=== PATIENT | female | born 1950 | race Two or more races ===

== ENCOUNTER 2023-05-13 21:41 | Emergency (ER) | payer MEDICARE, OTHER ==
[2023-05-13 22:02] LABS: BASOPHILS # (AUTO) 0.1 10^3/uL (0.0-0.1); BASOPHILS % (AUTO) 0.7 %; EOSINOPHILS # (AUTO) 0.3 10^3/uL (0.0-0.7); EOSINOPHILS % (AUTO) 2.5 %; HCT - HEMATOCRIT 41.8 % (37.0-47.0); HGB - HEMOGLOBIN 13.8 g/dL (12.0-16.0); LYMPHOCYTES # (AUTO) 4.3 10^3/uL (1.5-3.5); LYMPHOCYTES % (AUTO) 43.5 %; MEAN CORPUSCULAR HEMOGLOBIN 29.7 pg (27.0-31.0); MEAN CORPUSCULAR VOLUME 89.9 fL (81.0-99.0); MEAN PLATELET VOLUME 10.5 fL (7.9-10.8); MONOCYTES # (AUTO) 0.9 10^3/uL (0.0-1.0); MONOCYTES % (AUTO) 9.2 %; NEUTROPHILS # (AUTO) 4.4 10^3/uL (1.5-6.6); NEUTROPHILS % (AUTO) 43.8 %; PLT - PLATELET COUNT 320 10^3/uL (130-450); RED BLOOD COUNT 4.65 10^6/uL (4.20-5.40); RED CELL DISTRIBUTION WIDTH 12.4 % (12.0-15.0); WHITE BLOOD COUNT 9.9 x10^3/uL (4.8-10.8)
--- NOTE | 2023-05-13 22:05 | ED Physician Documentation ---
PD HPI CHEST PAIN - Stated complaint Stated Complaint: CHEST PX - Chief complaint Chief Complaint: Cardiac - History obtained from History obtained from: Patient, Family - Additional information Additional information: 72-year-old woman who visiting from [place]. She is accompanied by her and they arrived by private vehicle. She is no history of coronary disease and says she had a negative stress test about a year ago. That said she has multiple risk factors for coronary disease including hypertension and age and type 2 diabetes. She also has risk factor for PE given recent travel and she is on estrogen still. On and off for the last month she has had episodic nonexertional chest pain radiating to the back which lasts minutes to half an hour at a time. She notes no particular triggers. She developed a particular bad episode about an hour ago and this time she is nauseous with it which is new. PD PAST MEDICAL HISTORY - Allergies Allergies/Adverse Reactions: Allergies Allergy/AdvReac Type Severity Reaction Status Date / Time hydrocortisone AdvReac Emesis Verified 05/13/23 22:06 PD ED PE NORMAL - Vitals Vital signs reviewed: Yes - General General: Alert and oriented X 3, Other (appears uncomfortable and is retching.) - Cardiac Cardiac: RRR, No murmur - Respiratory Respiratory: No respiratory distress, Clear bilaterally - Abdomen Abdomen: Non tender - Extremities Extremities: No edema, No calf tenderness / cord - Neuro Neuro: Alert and oriented X 3, Normal speech Results - Vitals Vitals: Vital Signs - 24 hr 05/13/23 05/13/23 21:44 22:00 Temperature 37.1 C Heart Rate 64 63 Respiratory 16 18 Rate Blood Pressure 207/63 H 214/65 H O2 Saturation 100 99 Oxygen O2 Source Room air - EKG (time done) 2156 EKG releavant findings:: EKG personally interpreted by author of this note. Relevant findings are: Rate: Rate (enter#) (63) Rhythm: NSR [place]: Normal Intervals: Normal ME QRS: Normal Ischemia: Non specific changes. No: ST elevation c/w ischemia, ST depression Compare to prior EKG: Old EKG unavailable Computer interpretation: Agree with computer - Labs Labs: Laboratory Tests 05/13/23 05/13/23 21:56 21:56 WBC 9.9 RBC 4.65 Hgb 13.8 Hct 41.8 MCV 89.9 MCH 29.7 MCHC 33.0 RDW 12.4 Plt Count 320 MPV 10.5 Neut # (Auto) 4.4 Lymph # (Auto) 4.3 H Brooks # (Auto) 0.9 Eos # (Auto) 0.3 Baso # (Auto) 0.1 Absolute Nucleated RBC 0.00 Nucleated RBC % 0.0 Sodium 137 Potassium 4.0 Chloride 101 Carbon Dioxide 28 Anion Gap 8.0 BUN 16 Creatinine 0.6 Estimated GFR (MDRD) 99 Glucose 111 H Calcium 10.4 H Total Bilirubin 0.2 AST 21 ALT 17 Alkaline Phosphatase 94 Troponin I High Sens 3.0 Total Protein 7.8 Albumin 4.6 Globulin 3.2 Albumin/Globulin Ratio 1.4 Lipase 79 PD Medical Decision Making - ED course ED course: 72-year-old woman presents with acute chest pain, she looks uncomfortable and is retching. Her EKG is nonischemic and her initial troponin done at 10 PM was negative/normal. Given that she is also on estrogen she was sent for CT pulmonary angiogram which is pending at shift change but I do not see anything major on there. Signed out to Dr. Watkins at 11 PM shift change pending repeat troponin testing at midnight and formal read of her CT angiogram. She was feeling much better after a small dose of morphine and Zofran. She also received aspirin. She was hypertensive here and had not taken her antihypertensives but had them with her and was encouraged to do so. Departure - Departure Clinical Impression: Chest pain Qualifiers: Chest pain type: unspecified Qualified Code(s): R07.9 - Chest pain, unspecified Condition: Good Record reviewed to determine appropriate education?: Yes Instructions: ED Chest Pain Atypical Unkn Cause Forms: PCP List
[2023-05-13] MEDS ORDERED: iohexoL-300 100 ML VIAL ONE (22:06)
[2023-05-13] MEDS: ASPIRIN CHEW 81 MG TABLET PO STA (22:13)
[2023-05-13] MEDS: ONDANSETRON 4 MG/2 ML VIAL IVP STA (22:14)
[2023-05-13] MEDS: MORPHINE 2 MG/ML CARPUJECT IVP STA (22:16)
[2023-05-13 22:21] LABS: ALBUMIN 4.6 g/dL (3.2-5.5); ALBUMIN/GLOBULIN RATIO 1.4 (1.0-2.2); BILIRUBIN,TOTAL 0.2 mg/dL (0.2-1.0); CALCIUM 10.4 mg/dL (8.5-10.3); CREATININE 0.6 mg/dL (0.6-1.3); TOTAL PROTEIN 7.8 g/dL (6.4-8.9)
--- NOTE | 2023-05-13 22:27 | XRAY Report ---
PROCEDURE: Chest 1V INDICATIONS: Chest Pain TECHNIQUE: One view of the chest was acquired. COMPARISON: None. FINDINGS: Surgical changes and devices: None. Lungs and pleura: No pleural effusions or pneumothorax. Lungs are clear. Mediastinum: Mediastinal contours appear normal. Heart size is normal. Bones and chest wall: No suspicious bony lesions. Overlying soft tissues appear unremarkable. IMPRESSION: No acute cardiopulmonary process. Reviewed by: Robert Diaz MD on 05/13/2023 10:25 PM [facility] Approved by: Robert Diaz MD on 05/13/2023 10:25 PM [facility] Station ID: [id number]
[2023-05-13] MEDS: iohexoL-300 100 ML VIAL IVP ONE (22:32)
--- NOTE | 2023-05-13 22:52 | CT Report ---
PROCEDURE: Angio Chest INDICATIONS: Chest/back pain, on estrogen, PE protocol CONTRAST: 80mL Omni 300 TECHNIQUE: After the administration of intravenous contrast, 2 mm axial images were acquired from the pulmonary apices to the posterior costophrenic angles during the arterial phase. In addition, 1 mm lung kernel and 5 mm soft tissue kernel reconstructions were performed. 3-dimensional coronal oblique maximum int ensity projection (MIP) reformats, 8 mm axial MIP, and 5 mm coronal and sagittal MPR reformats were t hen performed through the thorax. For radiation dose reduction, the following was used: automated exp osure control, adjustment of mA and/or kV according to patient size. COMPARISON: Same day chest x-ray. FINDINGS: Image quality: Excellent. Large vessels: No filling defects within the opacified pulmonary arteries, accounting for motion and contrast timing. No evidence of acute aortic syndrome or aortic aneurysm. Lungs and pleura: No consolidation. No pleural effusions. No pneumothorax. There is a 5 mm right mid dle lobe nodule which appears to be along the minor fissure (image 52). Additional scattered micronod ules measuring 2 to 3 mm. Mediastinum: Heart size is normal. Mild coronary artery cavitations. No pericardial effusion. No larg e vessel abnormality. Mild atherosclerotic vascular calcifications. No mediastinal adenopathy by size criteria. Chest wall and lower neck: Thyroid is unremarkable. No axillary or supraclavicular adenopathy by size . Bones: No aggressive osseous abnormality. Upper Abdomen: Unremarkable. IMPRESSION: 1.No pulmonary embolus. 2.No acute pulmonary process. 3.Scattered nonspecific micronodules measuring 2 to 3 mm. There is a 5 mm nodule right middle lobe ad jacent to the minor fissure, favor represent an intrapulmonary lymph node. Per Fleischner criteria, i f patient is high risk, optional one-year chest CT can be obtained, if patient is low risk, no follow -up is necessary. Reviewed by: Robert Diaz MD on 05/13/2023 10:51 PM PST Approved by: Robert Diaz MD on 05/13/2023 10:51 PM PST Station ID: [id number]
--- NOTE | 2023-05-14 00:33 | ED Physician Documentation ---
ED Addendum - Addendum Addendum: 05/14/23 00:32 Patient endorsed to me by Dr. Ruvalcaba pending 2nd troponin. BP improved to 168/75 s/p home meds. will continue to monitor. 05/14/23 02:06 Repeat trop 95.1. Will plan to transfer for NSTEMI. calling [facility] now. 05/14/23 02:10 Repeat EKG at 02:05 with HR 65, NSR. normal intervals. nonischemic ekg without acute IGNACIO. 05/14/23 02:33 d/w Rani at [facility] who will look for placement for patient. 05/14/23 05:48 Brief episode of 8 beats of v tach on monitor at 05:40:45. [facility] aware. 05/14/23 06:59 Repeat ekg at 05:51 rate 64 NSR. normal intervals. similar to previous. Patient does have troponin elevation in 1000s on 3rd troponin at 5am, confirming NSTEMI. Plan to endorse to incoming daytime ED MD at 7am shift change.
[2023-05-14] MEDS: CLOPIDOGREL 300 MG TABLET PO STA (02:18)
[2023-05-14] MEDS: ATORVASTATIN 40 MG TABLET PO STA (02:19)
[2023-05-14] MEDS: ENOXAPARIN 80 MG/0.8 ML SYRINGE SUBQ STA (02:19)
[2023-05-14] MEDS: SODIUM CHLORIDE 0.9% 500 ML IV STA ×2 (03:00→09:02)
[2023-05-14] MEDS: SODIUM CHLORIDE 0.9% 1,000 ML IV STA (03:03)
[2023-05-14 04:05] LABS: B. PARAPERTUSSIS- RESP PCR PAN NOT DETECTED; B. PERTUSSIS- RESP PCR PANEL NOT DETECTED; C. PNEUMONIAE- RESP PCR PANEL NOT DETECTED; CORONAVIRUS 229E-RESP PCR NOT DETECTED; CORONAVIRUS HKU1-RESP PCR NOT DETECTED; CORONAVIRUS NL63-RESP PCR NOT DETECTED; CORONAVIRUS OC43-RESP PCR NOT DETECTED; HUMAN METAPNEUMOVIRUS NOT DETECTED; INFLUENZA A- RESP PCR PANEL NOT DETECTED; INFLUENZA B - RESP PCR PANEL NOT DETECTED; M. PNEUMONIAE- RESP PCR PANEL NOT DETECTED; PARAINFLUENZA VIRUS 1 NOT DETECTED; PARAINFLUENZA VIRUS 2 NOT DETECTED; PARAINFLUENZA VIRUS 3 NOT DETECTED; PARAINFLUENZA VIRUS 4 NOT DETECTED; RHINOVIRUS/ENTEROVIRUS NOT DETECTED; RSV- RESP PCR PANEL NOT DETECTED; SARS-CoV-2 -RESP PCR PANEL NOT DETECTED
[2023-05-14 06:23] LABS: MAGNESIUM 1.8 mg/dL (1.7-2.3)
[2023-05-14 06:54] LABS: TROPONIN I HIGH SENSITIVITY 1951.3 ng/L (2.3-14.8)
--- NOTE | 2023-05-14 08:31 | ED Physician Documentation ---
ED Addendum - Addendum Addendum: 05/14/23 08:28 The patient had received initial doses of medications for OR. We are awaiting word for hospital bed availability at outlying facilities. Likely will be at least through the day or longer. I wrote orders for daily medications to include acute ACS medications of aspirin , clopidogrel, Lovenox and atorvastatin. She typically uses on her med list also nifedipine and metformin and citalopram and Imdur. She is feeling well this morning. Blood pressure has been running approximately 110-120 systolic, HR 60s, overnight and this morning was actually 98 systolic. As such I will hold off on her nifedipine. I ordered her other home medicines. In lieu of the Imdur which would last all day, I will instead use a Nitropatch that can be removable. I talked with the patient she is feeling well this morning. She seemed in a good mood. She is not having any chest pain overnight or this morning. Repeat troponin was well elevated compared to the first 2. I will order some more and it 11 AM which will be at a 6-hour interval. Will check troponin, BNP, basic metabolic.
[2023-05-14 09:09] LABS: CALCIUM 9.3 mg/dL (8.5-10.3); CREATININE 0.5 mg/dL (0.6-1.3); POTASSIUM 4.2 mmol/L (3.5-4.5)
[2023-05-14 09:19] LABS: TROPONIN I HIGH SENSITIVITY 2534.8 ng/L (2.3-14.8)
[2023-05-14] MEDS: CITALOPRAM 10 MG TABLET PO SCH (10:16)
[2023-05-14] MEDS: ENOXAPARIN 80 MG/0.8 ML SYRINGE SUBQ SCH (10:16)
[2023-05-14] MEDS: ATORVASTATIN 40 MG TABLET PO SCH (10:17)
[2023-05-14] MEDS: NITROGLYCERIN 0.2 MG/HR PATCH TOP SCH (10:17)
[2023-05-14] MEDS: CLOPIDOGREL 75 MG TABLET PO SCH (10:17)
[2023-05-14] MEDS: ASPIRIN CHEW 81 MG TABLET PO SCH (10:17)
[2023-05-14] MEDS: metFORMIN 500 MG TABLET PO SCH (10:17)
[2023-05-14] MEDS: MAGNESIUM OXIDE 400 MG TABLET PO SCH (10:18)
--- NOTE | 2023-05-14 12:34 | PHARMACY PROGRESS NOTE ---
- Best Possible Medication History Admit Date and Time: Processed by: Nursing Medications reviewed in ED?: Yes As the person ultimately responsible for medication therapy, providers are able to order a medication from an existing home medication list in [facility] via the "Reconcile Routine" prior to Confirmation of that medication by ict support and test engineers. Such practice is discouraged except when the physician, in their clinical judgment, deems that a medical need exists for a medication without regard to previous use.
--- NOTE | 2023-05-14 16:58 | ED Physician Documentation ---
ED Addendum - Addendum Addendum: 05/14/23 16:56 The patient is still without any chest pain through the late morning and afternoon. We have not heard from any outlying facilities for accepting of the patient. She remains on heart monitor. No ectopy during the day today. She did have a brief run of V. tach for 8 beats last night as documented by the overnight provider. No further ones today. We did obtain an echocardiogram today which showed actually pretty good function of 60 to 65% ejection fraction, no regional wall abnormality, no effusion, and no major valvular dysfunctions. A repeat troponin was still showing elevation now to approximately 2900. She is not having chest pain so it does not sound like ongoing is ischemia per se I am. I am presuming still filtering out of a injured area. It would still be appropriate to have the patient undergo cardiology evaluation and we will continue awaiting facilities who can accept transfer.
[2023-05-15 06:14] LABS: BASOPHILS # (AUTO) 0.1 10^3/uL (0.0-0.1); EOSINOPHILS # (AUTO) 0.3 10^3/uL (0.0-0.7); EOSINOPHILS % (AUTO) 3.8 %; LYMPHOCYTES # (AUTO) 3.3 10^3/uL (1.5-3.5); LYMPHOCYTES % (AUTO) 48.7 %; MEAN CORPUSCULAR HEMOGLOBIN 29.5 pg (27.0-31.0); MEAN CORPUSCULAR HGB CONC 32.5 g/dL (32.0-36.0); MEAN CORPUSCULAR VOLUME 90.7 fL (81.0-99.0); MEAN PLATELET VOLUME 10.4 fL (7.9-10.8); MONOCYTES # (AUTO) 0.5 10^3/uL (0.0-1.0); MONOCYTES % (AUTO) 6.6 %; NEUTROPHILS # (AUTO) 2.7 10^3/uL (1.5-6.6); NEUTROPHILS % (AUTO) 39.8 %; PLT - PLATELET COUNT 284 10^3/uL (130-450); RED BLOOD COUNT 4.41 10^6/uL (4.20-5.40); RED CELL DISTRIBUTION WIDTH 12.3 % (12.0-15.0); WHITE BLOOD COUNT 6.8 x10^3/uL (4.8-10.8)
[2023-05-15 06:32] LABS: ALBUMIN 3.9 g/dL (3.2-5.5); ALBUMIN/GLOBULIN RATIO 1.4 (1.0-2.2); BILIRUBIN,TOTAL 0.3 mg/dL (0.2-1.0); CALCIUM 9.4 mg/dL (8.5-10.3); CREATININE 0.6 mg/dL (0.6-1.3); POTASSIUM 4.3 mmol/L (3.5-4.5); TOTAL PROTEIN 6.6 g/dL (6.4-8.9)
[2023-05-15] MEDS: METOPROLOL SUCCINATE 25 MG TABLET PO SCH (08:48)
--- NOTE | 2023-05-15 15:27 | ED Physician Documentation ---
ED Addendum - Addendum Addendum: 05/15/23 15:24 The patient was alert and conversant and in a pleasant mood. I talked at length with her about the rationale for needing to be in the hospital post [place] with concerns for development of extended heart attack, angina, heart failure and most hardin is dysrhythmias. These are most at risk in the first several days and the reason for wanting her to be here in the hospital while pending transfer. She did ask at what point we would consider discharge if bed availability riley ins none for a few more days. I talked with her that after point and no complications have developed then consideration could be outpatient follow-up in the short-term. This would want to be in tight consultation and corroboration with the technical engineer. I did state that that would not be considered standard of care necessarily once your preference is to do a more appropriate transfer etc. Along those lines, Parvez RITTER has been updating with us and did call today for patient condition update and to advise us the patient is still high on the list for transfer.
--- NOTE | 2023-05-15 18:07 | ED Physician Documentation ---
ED Addendum - Addendum Addendum: 05/15/23 18:05 Discussed the case with FUAD Acevedo, who graciously accepts in transfer. COBRA forms completed. Patient will be transferred. Departure - Departure Disposition: 02 Transfer [facility] Clinical Impression: Ventricular tachycardia, Elevated troponin, Non-ST elevated myocardial infarction (non-STEMI) Chest pain Qualifiers: Chest pain type: unspecified Qualified Code(s): R07.9 - Chest pain, unspecified Condition: Fair Instructions: ED Chest Pain Atypical Unkn Cause Forms: PCP List
[2023-05-15 18:35] VITALS: BP 117/71; O2SAT 95
== END 2023-05-15 19:51 | disposition short-term general hospital (02) ==
LOC: ED 21:41
DX: I21.4 Non-ST elevation (NSTEMI) myocardial infarction (principal); I47.20 Ventricular tachycardia, unspecified; R79.89 Other specified abnormal findings of blood chemistry; I10 Essential (primary) hypertension; E11.9 Type 2 diabetes mellitus without complications
CPT/HCPCS: 36415; 71045; 71275; 80048; 80053; 83690; 83735; 83880; 84484; 85025; 87633; 93005; 93307; 96361; 96372; 96374; 96375; 99285; A9270; J1650; Q9967; 82803; 83605; 87040

== ENCOUNTER 2023-05-15 19:51 | Outpatient (CLI) | payer MEDICARE, OTHER | END 2023-05-15 23:59 | disposition short-term general hospital (02) | LOC: EMS 19:51 | PROVIDERS: ATTEND Emergency Medicine | DX: I21.4 Non-ST elevation (NSTEMI) myocardial infarction (principal) | CPT/HCPCS: A0425; A0428 ==